=== PATIENT | male | born 1970 | race Caucasian/White ===

== ENCOUNTER 2025-08-29 06:22 | Day surgery (SDC) | payer BC ==
[2025-08-23 12:50] VITALS: BMI 29.4
[2025-08-29] MEDS ORDERED: Lidocaine 1% w/Epinephrine 1:200K 30 ML VIAL ONE (06:45)
[2025-08-29] MEDS ORDERED: Bacitracin 1 PK ONE (06:45)
[2025-08-29] MEDS ORDERED: Ferric Subsulfate 8 ML TOPICAL SOLN ONE (06:45)
[2025-08-29] MEDS ORDERED: PROPOFOL 40 ML ONE (07:26)
[2025-08-29] MEDS ORDERED: SUGAMMADEX SODIUM 200 MG/2 ML VIAL ONE (07:26)
[2025-08-29] MEDS ORDERED: Rocuronium Bromide 10 MG/ML (10ML VIAL) ONE (07:26)
[2025-08-29] MEDS ORDERED: Lidocaine 1% PF 5 ML VIAL ONE (07:26)
[2025-08-29] MEDS ORDERED: KETAMINE 100 MG/ML (5ML VIAL) ONE (07:29)
[2025-08-29] MEDS ORDERED: AFRIN NASAL MIST 15 ML BOT ONE (07:35)
[2025-08-29] MEDS ORDERED: Oxymetazoline HCl 0.05% (15 ML) ONE (08:08)
[2025-08-29] MEDS ORDERED: HYDROmorphone 2 MG/ML VIAL ONE (09:09)
[2025-08-29] MEDS ORDERED: Hydrocodone-Acetamin 15 ML UDCUP ONE (09:42)
[2025-08-29] MEDS ORDERED: hydrALAZINE 20 MG/ML VIAL ONE (10:12)
== END 2025-08-29 12:00 | disposition home or self-care (01) ==
LOC: CSHSDC 06:22
PROVIDERS: ATTEND Specialist
PROC: 0CBPXZZ Excision of Tonsils, External Approach (ICD-10-PCS; principal; 2025-08-29)
PROC: 0CBN0ZZ Excision of Uvula, Open Approach (ICD-10-PCS; principal; 2025-08-29)
DX: J35.1 Hypertrophy of tonsils (principal); J34.3 Hypertrophy of nasal turbinates; J34.2 Deviated nasal septum; K13.79 Other lesions of oral mucosa; I10 Essential (primary) hypertension; E78.5 Hyperlipidemia, unspecified; K11.22 Acute recurrent sialoadenitis; Z79.899 Other long term (current) drug therapy
CPT/HCPCS: 88302; 88304; J0360; J1100; J1171; J2704